=== PATIENT | female | born 1950 | race Caucasian/White ===

== ENCOUNTER → 2020-01-18 12:55 | Outpatient (CLI) | payer MEDICARE, SELFPAY ==
--- NOTE | ~2020-01-18 | XR_ITS ---
XR chest 2V DATE: 01/18/2020 13:48 INDICATION: Cough TECHNIQUE: PA and lateral views COMPARISON: 02/28/2019 PA and lateral views FINDINGS: Normal heart size. No hilar or mediastinal enlargement. No pulmonary infiltrate or consol idation, pulmonary vascular congestion or pleural effusion or pneumothorax. Diffuse osteopenia. IMPRESSION: No active cardiopulmonary disease Reviewed, dictated and finalized at location A.
== END ==
PROVIDERS: PCP Internal Medicine; Visit Provider Nurse Practitioner
DX: R05 Cough (principal)
CPT/HCPCS: 71046

== ENCOUNTER 2020-11-19 09:55 | Outpatient (CLI) | payer MEDICARE, SELFPAY ==
--- NOTE | ~2020-11-19 | MM_ITS ---
EXAMINATION: MM screening [facility] BI w aura HISTORY: Screening mammogram TECHNIQUE: Craniocaudal and mediolateral oblique 3-D tomosynthesis images were obtained and synthetic 2-D images were generated. CAD analysis was submitted and interpreted. COMPARISON: 10/08/2019, 10/05/2018, 10/03/2017 BREAST PARENCHYMAL COMPOSITION: There are scattered areas of fibroglandular density. FINDINGS: Stable lumpectomy changes are noted in the inner left breast. There is no evidence of suspi cious mass, calcification, or architectural distortion to suggest malignancy in either breast. There has been no suspicious interval change. IMPRESSION: 1. No mammographic evidence of malignancy. 2. Recommend routine screening mammography in one year. BI-RADS Category 2: Benign finding(s). Reviewed, dictated and finalized at location A. BILITY ENGINEER
--- NOTE | ~2020-11-19 | DEXA_ITS ---
Bone Density Report Name: Jaye Brandon Age: 70 Sex: Female Ethnicity: White Date of : 1950 Indication: postmenopausal; parental hip fracture; height loss; cancer; Referring Provider: LAURO EDMOND Study: Bone densitometry was performed. Exam Date: November 19, 2020 Accession number: [id number] Bone Density: Region BMD T-score Z-score Classification AP Spine (L1-L4) 0.979 -0.6 1.6 Normal Femoral Neck (Left) 0.664 -1.7 0.2 Osteopenia Total Hip (Left) 0.854 -0.7 0.8 Normal Total Hip Bilateral Avg 0.847 -0.8 0.8 Normal Femoral Neck (Right) 0.668 -1.6 0.2 Osteopenia Total Hip (Right) 0.839 -0.8 0.7 Normal World Health Organization criteria for BMD impression classify patients as: Normal (T-score at or above -1.0), Osteopenia (T-score between -1.0 and -2.5), or Osteoporosis (T-score at or below -2.5). 10-year Fracture Risk(1): Major Osteoporotic Fracture 16% Hip Fracture 4.0% Reported Risk Factors: [place] (), Neck BMD=0.668, BMI=31.0, parental fracture (1) FRAX(R) Version 3.08. Fracture probability calculated for an untreated patient. Fracture probability may be lower if the patient has received treatment. Previous Exams: Region Exam Age BMD T-score BMD Change BMD Change Date g/cm2 vs Baseline vs Previous AP Spine(L1-L4) 11/19/2020 70 0.979 -0.6 -0.172(-14.9%) 0.002(0.3%) 11/13/2015 65 0.977 -0.6 -0.174(-15.1%) -0.045(-4.4%)# 05/11/2012 61 1.022 -0.2 -0.130(-11.3%) 0.032(3.2%)# 01/15/2010 59 0.990 -0.5 -0.162(-14.0%) -0.062(-5.9%)* 07/19/2007 56 1.052 0.0 -0.100(-8.6%)* -0.096(-8.4%)* 03/23/2005 54 1.148 0.9 -0.004(-0.3%) -0.004(-0.3%) 01/18/2002 51 1.151 0.9 Total Hip(Left) 11/19/2020 70 0.854 -0.7 -0.094(-9.9%)# 0.006(0.7%) 10/05/2018 67 0.848 -0.8 -0.099(-10.5%) -0.049(-5.4%)* 11/13/2015 65 0.897 -0.4 -0.051(-5.3%)# -0.011(-1.2%)# 05/11/2012 61 0.908 -0.3 -0.040(-4.2%)# 0.066(7.9%)# 01/15/2010 59 0.841 -0.8 -0.106(-11.2%) -0.032(-3.7%)* 07/19/2007 56 0.873 -0.6 -0.074(-7.8%)* -0.085(-8.8%)* 03/23/2005 54 0.958 0.1 0.011(1.1%) 0.011(1.1%) 01/18/2002 51 0.947 0.0 Total Hip(Right) 11/19/2020 70 0.839 -0.8 -0.137(-14.0%) -0.027(-3.1%) 10/05/2018 67 0.866 -0.6 -0.110(-11.3%) -0.065(-7.0%)* 11/13/2015 65 0.931 -0.1 -0.045(-4.6%)# 0.023(2.5%)# 05/11/2012 61 0.908 -0.3 -0.068(-7.0%)# 0.039(4.5%)# 01/15/2010 59 0.869 -0.6 -0.107(-11.0%) -0.021(-2.4%) 07/19/2007 56 0.890 -0.4 -0.086(-8.8%)* -0.115(-11.5%) 03/23/2005 54 1.006 0.5 0.030(3.0%)* 0.030(3.0%)*
== END 2020-11-19 09:56 | disposition home or self-care (01) ==
LOC: ANHIMG 09:58
PROVIDERS: PCP Internal Medicine; Visit Provider Internal Medicine
DX: Z12.31 Encounter for screening mammogram for malignant neoplasm of breast (principal); Z78.0 Asymptomatic menopausal state; M85.852 Other specified disorders of bone density and structure, left thigh; M85.851 Other specified disorders of bone density and structure, right thigh
CPT/HCPCS: 77063; 77067; 77080

== ENCOUNTER 2022-01-20 12:28 | Outpatient (CLI) | payer MEDICARE, SELFPAY ==
--- NOTE | ~2022-01-20 | MM_ITS ---
EXAMINATION: MM screening [facility] BI w aura HISTORY: Screening. 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 TECHNIQUE: Craniocaudal and mediolateral oblique 3-D tomosynthesis images were obtained and synthetic 2-D images were generated. CAD analysis was submitted and interpreted. COMPARISON: Comparison to multiple prior studies sequentially, with oldest reviewed study dated 08/18. BREAST PARENCHYMAL COMPOSITION: There are scattered areas of fibroglandular density. FINDINGS: Stable lumpectomy changes of the left breast. There is no evidence of suspicious mass, calc ification, or architectural distortion to suggest malignancy in either breast. There has been no susp icious interval change. IMPRESSION: 1. No mammographic evidence of malignancy. 2. Recommend routine screening mammography in one year. BI-RADS Category 1: Negative Reviewed, dictated and finalized at location A.
== END 2022-01-20 12:29 | disposition home or self-care (01) ==
LOC: ANHIMG 12:29
PROVIDERS: PCP Internal Medicine; Visit Provider Nurse Practitioner
DX: Z12.31 Encounter for screening mammogram for malignant neoplasm of breast (principal)
CPT/HCPCS: 77063; 77067

== ENCOUNTER → 2022-09-03 08:31 | Outpatient (CLI) | payer MEDICARE, SELFPAY ==
--- NOTE | ~2022-09-03 | XR_ITS ---
XR lumbar spine 2-3V DATE: 09/03/2022 08:49 INDICATION: Low back pain for 2 months. No injury. TECHNIQUE: AP, lateral, coned lateral lumbosacral views COMPARISON: 02/28/2019 CT abdomen FINDINGS: There is mild dextroscoliosis of the lumbar spine. There is diffuse osteopenia. The lumbar pedicles are intact. No fracture or bone destruction is evident. There is moderate to moderately severe degenerative disc disease at L1-2 through L4-5 with associated minimal retrolisthesis at L2-3, L3-4 and L4-5. L5-S1 interspace is relatively well preserved. The sacral iliac joints are normal. IMPRESSION: Osteopenia Mild dextroscoliosis Moderately severe degenerative disc disease at L1-2 through L4-5 with associated mild retrolisthesis at L2-3, L3-4 and L4-5 Reviewed, dictated and finalized at location B. EL MANAGER IMPRESSION: Osteopenia Mild dextroscoliosis Moderately severe degenerative disc disease at L1-2 through L4-5 with associate d mild retrolisthesis at L2-3, L3-4 and L4-5
== END ==
PROVIDERS: PCP Internal Medicine; Visit Provider Nurse Practitioner
DX: M85.88 Other specified disorders of bone density and structure, other site (principal); M51.36 Other intervertebral disc degeneration, lumbar region
CPT/HCPCS: 72100

== ENCOUNTER → 2022-09-17 16:29 | Outpatient (CLI) | payer MEDICARE, SELFPAY ==
--- NOTE | ~2022-09-17 | MR_ITS ---
EXAMINATION: MR lumbar spine wo con DATE: 09/17/2022 17:07 INDICATION: Low back pain with radicular symptoms. TECHNIQUE: Magnetic resonance imaging (MRI) of the lumbar spine was performed without intravenous con trast. Sequences included sagittal T2-weighted FSE, sagittal T2-weighted FS FSE, sagittal T1-weighted FSE, and axial T2-weighted FSE. COMPARISON: Lumbar spine radiographs 09/03/2022 FINDINGS: There is 10 degrees dextroscoliosis of lumbar spine. There is 3 mm retrolisthesis of L2 on L3 and 5 mm retrolisthesis of L3 on L4 and L4 on L5. There is mild chronic anterior wedging of L1 and L2 vertebral bodies. There is mildly decreased disc height at L2-L3 and moderately decreased disc he ight from L3-L4 through L5-S1 with endplate remodeling. The distal spinal cord signal intensity is no rmal. The conus medullaris is at L1. There is ligamentum flavum hypertrophy at the lumbar disc levels . The following disc levels are specifically discussed: L1-L2: There is a central protrusion. There is mild bilateral facet joint osteoarthritis. There is no neural foraminal stenosis. There is mild central canal stenosis. L2-L3: The disc is bulging and has an annular fissure. There is severe bilateral facet joint osteoart hritis. There is moderate bilateral neural foraminal stenosis. There is mild central canal stenosis. L3-L4: The disc is bulging and has an annular fissure. There is severe bilateral facet joint osteoart hritis. There is moderate bilateral neural foraminal stenosis. There is mild central canal stenosis. L4-L5: The disc is bulging and has an annular fissure. There is severe right and moderate left facet joint osteoarthritis. There is severe right and moderate left neural foraminal stenosis. There is mil d central canal stenosis. L5-S1: The disc is bulging. There is severe bilateral facet joint osteoarthritis. There is mild bilat eral neural foraminal stenosis. There is mild central canal stenosis. IMPRESSION: 1. Severe lumbar spondylosis. 2. Lumbar dextroscoliosis. Reviewed, dictated and finalized at location E. FOLIO MANAGER
== END ==
PROVIDERS: PCP Internal Medicine; Visit Provider Nurse Practitioner
DX: M47.26 Other spondylosis with radiculopathy, lumbar region (principal)
CPT/HCPCS: 72148

== ENCOUNTER 2023-12-26 09:28 | Outpatient (CLI) | payer MEDICARE, SELFPAY ==
--- NOTE | ~2023-12-26 | XR_ITS ---
AP and lateral views of the left hip Clinical history: Pain Findings: No acute fracture or dislocation is seen. Osseous alignment is anatomic. The left hip joint space is preserved. Soft tissues are unremarkable. Impression: No significant abnormality is seen. Reviewed, dictated and finalized at location M. Impression: No significant abnormality is seen.
== END 2023-12-26 09:29 ==
PROVIDERS: PCP Family Medicine; Visit Provider Family Medicine
DX: M25.552 Pain in left hip (principal)
CPT/HCPCS: 73502

== ENCOUNTER 2024-08-07 14:14 | Outpatient (CLI) | payer MEDICARE, SELFPAY ==
--- NOTE | ~2024-08-07 | MM_ITS ---
EXAMINATION: MM screening [facility] BI w aura HISTORY: Screening TECHNIQUE: Craniocaudal and mediolateral oblique 3-D tomosynthesis images were obtained and synthetic 2-D images were generated. CAD analysis was submitted and interpreted. COMPARISON: Comparison to multiple prior studies sequentially, with oldest reviewed study dated 09/16. BREAST PARENCHYMAL COMPOSITION: Not dense: There are scattered areas of fibroglandular density. FINDINGS: There is developing asymmetry in the upper outer quadrant of the right breast, middle third . There are associated punctate calcifications. The left breast is stable without evidence for malign brodie. IMPRESSION: 1. Developing right breast asymmetry with associated punctate calcifications. 2. Additional mammographic views and possible breast ultrasound are recommended. BI-RADS Category 0: Incomplete: Needs additional imaging evaluation. Reviewed, dictated and finalized at location B. IMPRESSION: 1. Developing right breast asymmetry with associated punctate calcifications. 2. Additional mammographic views and possible breast ultrasound are recommended . BI-RADS Category 0: Incomplete: Needs additional imaging evaluation.
== END 2024-08-07 14:15 | disposition home or self-care (01) ==
LOC: ANHIMG 14:15
PROVIDERS: PCP Family Medicine; Visit Provider Family Medicine
DX: Z12.31 Encounter for screening mammogram for malignant neoplasm of breast (principal); R91.8 Other nonspecific abnormal finding of lung field
CPT/HCPCS: 77063; 77067

== ENCOUNTER 2024-08-24 09:54 | Outpatient (CLI) | payer MEDICARE, SELFPAY ==
--- NOTE | ~2024-08-24 | MMUS_ITS ---
EXAMINATION: MM diagnostic [facility] RT w aura, US breast RT limited HISTORY: Follow-up right breast asymmetry with calcifications TECHNIQUE: Additional 3-D tomosynthesis images of the right breast were performed and synthetic 2-D i mages were generated. CAD analysis was submitted and interpreted. High resolution Limited right breas t ultrasound was performed. COMPARISON: Comparison to multiple prior studies sequentially, with oldest reviewed study dated 09/17. BREAST PARENCHYMAL COMPOSITION: Not dense: There are scattered areas of fibroglandular density. FINDINGS: MAMMOGRAPHIC FINDINGS: There is a focal developing asymmetry in the upper outer quadrant of the right breast, middle third w ith adjacent punctate calcifications. ULTRASOUND: Limited right breast ultrasound: Normal heterogeneous echotexture without focal solid or cystic mass. IMPRESSION: 1. Developing left breast asymmetry with adjacent calcifications. No sonographic correlate. 2. Stereotactic left breast biopsy recommended. BI-RADS category 4, suspicious findings. Reviewed, dictated and finalized at location B. 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 Developing left breast asymmetry with adjacent calcifications. No sonographi c correlate. 2. Stereotactic left breast biopsy recommended. BI-RADS category 4, suspicious findings.
== END 2024-08-24 09:55 | disposition home or self-care (01) ==
LOC: ANHIMG 09:54
PROVIDERS: PCP Family Medicine; Visit Provider Family Medicine
DX: R92.0 Mammographic microcalcification found on diagnostic imaging of breast (principal); R92.8 Other abnormal and inconclusive findings on diagnostic imaging of breast
CPT/HCPCS: 76642; 77061; 77065; G0279